=== PATIENT | male | born 1960 | race Caucasian/White ===

== ENCOUNTER 2022-05-30 10:27 | Outpatient (REF) | payer OTHER, SELFPAY ==
--- NOTE | ~2022-05-30 | XR_ITS ---
EXAMINATION: XR LUMBOSACRAL SPINE CLINICAL INFORMATION: Lumbar region radiculopathy. COMPARISON: None TECHNIQUE: Three views of the lumbosacral spine. FINDINGS: There is normal lumbar lordosis and spinal alignment. Mild degenerative disc disease is seen at L5-S1. There is no acute fracture. The soft tissues are unremarkable. XR/XR lumbar spine 2-3V IMPRESSION: L5-S1 mild degenerative disc disease.
[2022-05-30 13:41] LABS: MANUAL DIFF FLAG NO
[2022-05-30 13:52] LABS: Appearance Urine Clear; Color Urine Yellow; Glucose Urine UA Negative (Negative); Leukocyte Esterase Urine Negative (Negative); Nitrite Urine Negative (Negative); Specific Gravity - Urine 1.015 (1.005-1.025); Urine Blood Negative (Negative); Urine Ketones Negative (Negative); Urine Protein Negative (Neg-Trace)
[2022-05-30 13:56] LABS: Basophils Absolute Auto 0.1 X10*3/uL (0.0-0.2); Basophils Percent Auto 1.1 % (0-2); Eosinophils Absolute Auto 0.3 X10*3/uL (0.0-0.4); Hemoglobin 15.5 g/dl (14.0-18.0); Imm Gran Abs Auto 0.02 X10*3/uL (0.00-0.03); Imm Gran Pct Auto 0.3 % (0.0-0.4); Lymphocytes Absolute Auto 1.7 X10*3/uL (1.2-4.9); Lymphocytes Percent Auto 25.2 % (20-40); Mean Corpuscular HGB Conc 35.2 g/dl (31.0-36.0); Mean Corpuscular Hemoglobin 30.3 pg (27.0-33.0); Mean Corpuscular Volume 86.1 fL (80.0-98.0); Mean Platelet Volume 10.1 fL (9.4-12.4); Monocytes Absolute Auto 0.7 X10*3/uL (0.1-1.2); Neutrophils Absolute Auto 3.9 x10*3/uL (2.0-8.3); Neutrophils Percent Auto 59.4 % (45-73); Platelet Count 254 X10*3/uL (160-400); Red Blood Count 5.11 X10*6/uL (4.60-5.80); Red Cell Distribution Width 13.2 % (11.0-16.0); White Blood Count 6.6 X10*3/uL (4.8-10.8)
[2022-05-30 14:11] LABS: Alanine Aminotransferase 25 U/L (0-40); Albumin Level 4.6 g/dL (3.5-5.0); Alkaline Phosphatase 97 U/L (39-117); Anion Gap 18 (12-20); Aspartate Amino Transferase 30 U/L (5-37); Bilirubin Total 0.4 mg/dL (0.0-1.0); Blood Urea Nitrogen 16 mg/dL (9-16); Calcium 9.6 mg/dL (8.4-10.2); Carbon Dioxide 20 mmol/L (22-29); Chloride 104 mmol/L (96-108); Cholesterol 204 mg/dL; Estimated Glomerular Filt Rate > 60; Glucose Fasting 166 mg/dL (60-99); HDL Cholesterol 60 mg/dL; LDL Cholesterol Calculated 107 mg/dl; Potassium 4.3 mmol/L (3.3-5.1); Sodium 138 mmol/L (135-145); Total Protein 7.3 g/dL (6.5-8.0); Triglycerides 186 mg/dL; Uric Acid 7.3 mg/dL (3.4-7.0)
[2022-05-30 14:33] LABS: TSH reflex Free T4 1.01 uIU/mL (0.32-4.0)
== END 2022-05-30 10:28 | disposition home or self-care (01) ==
LOC: HO.HMGCLDS 10:27
PROVIDERS: PCP Nurse Practitioner Family; Visit Provider Nurse Practitioner Family
DX: M54.16 Radiculopathy, lumbar region (principal); G89.29 Other chronic pain; I10 Essential (primary) hypertension; M10.9 Gout, unspecified
CPT/HCPCS: 36415; 72100; 80053; 80061; 81003; 84443; 84550; 85025

== ENCOUNTER 2023-01-01 13:32 | Outpatient (REF) | payer OTHER, SELFPAY ==
[2023-01-01 17:10] LABS: Influenza A PCR NEGATIVE (Negative); Influenza B PCR NEGATIVE (Negative); Resp Syncy Virus RNA Qual PCR NEGATIVE (Negative); SARS COV2 PCR INHOUSE NEGATIVE (Negative)
== END 2023-01-01 13:33 | disposition home or self-care (01) ==
LOC: HO.LAB 13:32
PROVIDERS: Visit Provider Physician Assistant Medical
DX: Z20.822 Contact with and (suspected) exposure to COVID-19 (principal); R09.89 Other specified symptoms and signs involving the circulatory and respiratory systems
CPT/HCPCS: 0241U

== ENCOUNTER 2023-01-01 13:40 | Outpatient (REF) | payer OTHER, SELFPAY ==
--- NOTE | ~2023-01-01 | XR_ITS ---
EXAMINATION: XR chest 2V CLINICAL INFORMATION: Acute sinusitis, unspecified COMPARISON: No prior studies available for comparison. TECHNIQUE: XR chest 2V Lungs and Denita: There are mild bilateral parahilar interstitial opacification, probably mild interstitial infiltrates. There is no dense lobar consolidation. Pleura: Normal. Costophrenic angles are sharp. No pneumothorax. Heart: The heart is normal in size. Mediastinum: The mediastinum is within normal limits.. Bones: Spondylosis of dorsal spine. No evidence of acute fracture. XR/XR chest 2V IMPRESSION: * Mild bilateral parahilar interstitial opacification probably mild interstitial infiltrates. * No dense lobar consolidation or pleural effusion. * No evidence of acute fracture.
== END 2023-01-01 13:41 | disposition home or self-care (01) ==
LOC: HO.HMGCX 13:40
PROVIDERS: PCP Nurse Practitioner Family; Visit Provider Physician Assistant Medical
DX: R05.9 Cough, unspecified (principal); J01.90 Acute sinusitis, unspecified
CPT/HCPCS: 71046

== ENCOUNTER 2023-02-13 09:51 | Outpatient (REF) | payer OTHER, SELFPAY ==
--- NOTE | ~2023-02-13 | XR_ITS ---
EXAMINATION: XR CHEST CLINICAL INFORMATION: Abnormal lung field finding. COMPARISON: 12/24/2022 chest radiographs. TECHNIQUE: 2 views of the chest were obtained. FINDINGS: There is generalized hyperinflation. A paucity of lung markings is seen in the upper lung jimenez with mild bibasilar linear markings decrease in the previous study. There are no pleural effusions. The heart and mediastinal structures are unremarkable. XR/XR chest 2V IMPRESSION: 1. Pulmonary findings consistent with COPD. Mild bibasilar linear atelectasis/scarring has decreased. No acute cardiopulmonary process.
== END 2023-02-13 09:52 | disposition home or self-care (01) ==
LOC: HO.HMGCX 09:51
PROVIDERS: PCP Nurse Practitioner Family; Visit Provider Nurse Practitioner Family
DX: R91.8 Other nonspecific abnormal finding of lung field (principal)
CPT/HCPCS: 71046

== ENCOUNTER 2023-03-08 07:20 | Outpatient (REF) | payer OTHER, SELFPAY | END 2023-03-08 07:21 | disposition home or self-care (01) | LOC: HO.RESP 07:20 | PROVIDERS: PCP Nurse Practitioner Family; Visit Provider Nurse Practitioner Family | DX: J44.9 Chronic obstructive pulmonary disease, unspecified (principal) | CPT/HCPCS: 94060; 94727; 94729 ==

== ENCOUNTER 2023-03-13 07:11 | Outpatient (REF) | payer OTHER, SELFPAY ==
[2023-03-13 11:10] LABS: MANUAL DIFF FLAG NO
[2023-03-13 11:15] LABS: Appearance Urine Clear; Color Urine Yellow; Glucose Urine UA Negative (Negative); Leukocyte Esterase Urine Negative (Negative); Nitrite Urine Negative (Negative); Specific Gravity - Urine 1.015 (1.005-1.025); Urine Blood Negative (Negative); Urine Ketones Negative (Negative); Urine Protein Negative (Neg-Trace)
[2023-03-13 11:21] LABS: Basophils Absolute Auto 0.1 X10*3/uL (0.0-0.2); Eosinophils Absolute Auto 0.2 X10*3/uL (0.0-0.4); Eosinophils Percent Auto 3.2 % (0-4); Hematocrit 42.6 % (42.0-52.0); Hemoglobin 14.4 g/dl (14.0-18.0); Imm Gran Abs Auto 0.01 X10*3/uL (0.00-0.03); Imm Gran Pct Auto 0.2 % (0.0-0.4); Lymphocytes Absolute Auto 1.4 X10*3/uL (1.2-4.9); Lymphocytes Percent Auto 28.4 % (20-40); Mean Corpuscular HGB Conc 33.8 g/dl (31.0-36.0); Mean Corpuscular Hemoglobin 29.8 pg (27.0-33.0); Mean Corpuscular Volume 88.2 fL (80.0-98.0); Monocytes Absolute Auto 0.6 X10*3/uL (0.1-1.2); Monocytes Percent Auto 12.9 % (2-11); Neutrophils Absolute Auto 2.7 x10*3/uL (2.0-8.3); Neutrophils Percent Auto 54.3 % (45-73); Platelet Count 210 X10*3/uL (160-400); Red Blood Count 4.83 X10*6/uL (4.60-5.80)
[2023-03-13 11:48] LABS: Alanine Aminotransferase 36 U/L (0-40); Albumin Level 4.2 g/dL (3.5-5.0); Alkaline Phosphatase 76 U/L (39-117); Anion Gap 15 (12-20); Aspartate Amino Transferase 44 U/L (5-37); Bilirubin Total 0.6 mg/dL (0.0-1.0); Blood Urea Nitrogen 18 mg/dL (9-16); Calcium 9.6 mg/dL (8.4-10.2); Carbon Dioxide 19 mmol/L (22-29); Chloride 109 mmol/L (96-108); Cholesterol 183 mg/dL; Estimated Glomerular Filt Rate > 60; Glucose Fasting 164 mg/dL (60-99); HDL Cholesterol 55 mg/dL; LDL Cholesterol Calculated 104 mg/dl; Sodium 139 mmol/L (135-145); Total Protein 6.9 g/dL (6.5-8.0); Triglycerides 120 mg/dL
[2023-03-13 11:55] LABS: TSH reflex Free T4 1.52 uIU/mL (0.32-4.0)
== END 2023-03-13 07:12 | disposition home or self-care (01) ==
LOC: HO.HMGCLDS 07:11
PROVIDERS: PCP Nurse Practitioner Family; Visit Provider Nurse Practitioner Family
DX: I10 Essential (primary) hypertension (principal)
CPT/HCPCS: 36415; 80053; 80061; 81003; 84443; 85025

== ENCOUNTER 2023-03-19 09:13 | Outpatient (REF) | payer OTHER, SELFPAY ==
--- NOTE | ~2023-03-19 | US_ITS ---
EXAMINATION: US ABDOMEN COMPLETE CLINICAL INFORMATION: Abnormal levels of other serum enzymes. COMPARISON: None available. TECHNIQUE: Real-time imaging of the abdominal viscera. FINDINGS: PANCREAS: Normal head and body, the tail is obscured by bowel gas. ABDOMINAL AORTA: The mid and distal segments are normal in caliber. The proximal abdominal aorta is obscured by bowel gas. INFERIOR VENA CAVA: Visualized portions are normal. LIVER: The liver is enlarged, measuring 19.6 cm in sagittal oblique dimension. The liver contour is normal. There is diffuse increased liver parenchymal echogenicity, consistent with hepatic steatosis. No focal hepatic lesion. There is no intrahepatic biliary duct dilatation seen. GALLBLADDER: Normal. The gallbladder is physiologically distended without evidence of stones, sludge, polyps, wall thickening or pericholecystic fluid. COMMON BILE DUCT: Normal in caliber measuring 0.16 cm in diameter. RIGHT KIDNEY: Normal. No hydronephrosis. No renal calculi or focal parenchymal lesions. The kidney measures 12.0 cm in maximum dimension. LEFT KIDNEY: Normal. No hydronephrosis. No renal calculi or focal parenchymal lesions. The kidney measures 12.1 cm in maximum dimension. SPLEEN: Normal. The spleen measures 13.2 cm in maximum dimension. FREE FLUID: None. US/US abdomen complete IMPRESSION: 1. Hepatomegaly and hepatic steatosis. 2. The tail of the pancreas and proximal abdominal aorta are obscured by bowel gas.
== END 2023-03-19 09:14 | disposition home or self-care (01) ==
LOC: HO.HMGCX 09:13
PROVIDERS: PCP Nurse Practitioner Family; Visit Provider Nurse Practitioner Family
DX: R74.8 Abnormal levels of other serum enzymes (principal)
CPT/HCPCS: 76700

== ENCOUNTER 2023-03-27 08:33 | Outpatient (REF) | payer OTHER, SELFPAY ==
[2023-03-27 11:49] LABS: Estimated Average Glucose 154 mg/dL
[2023-03-29 08:54] LABS: HBS Num1 0.32 mIU/mL (0-7.99); HBsAGNum1 0.46 S/CO (0.00-0.99); Hepatitis A Antibody IgM 0.15 Index (0-0.79); Hepatitis B Core Antibody Nonreactive (Nonreactive); Hepatitis B Surface Antigen Negative (Negative); ~HepC Num1 0.06 S/CO (0.00-0.79); ~Hepatitis A Antibody IgM Nonreactive (Nonreactive); ~Hepatitis B Surface Antibody NONREACTIVE (Nonreactive); ~Hepatitis C Antibody Nonreactive (Nonreactive)
== END 2023-03-27 08:34 | disposition home or self-care (01) ==
LOC: HO.HMGCLDS 08:33
PROVIDERS: Internal Medicine; PCP Nurse Practitioner Family; Visit Provider Nurse Practitioner Family
DX: R73.01 Impaired fasting glucose (principal); R74.8 Abnormal levels of other serum enzymes
CPT/HCPCS: 36415; 83036; 86704; 86706; 86709; 86803; 87340

== ENCOUNTER 2023-08-13 09:39 | Outpatient (AMB) | payer OTHER, SELFPAY ==
[2023-08-13 11:01] VITALS: BP 140/78; PULSE 89; TEMP 36.2; O2SAT 98; BMI 34.9
--- NOTE | 2023-08-13 11:01 | AM.OFFWIN_ITS ---
Intake Vital Signs 08/13/23 11:01 Height 6 ft Weight 116.573 kg BMI 34.9 BP 140/78 H Blood Pressure Location Rt brachial Position Sitting Pulse 89 Pulse Source Pulse Oximeter Temp 97.1 F Pulse Oximetry (%) 98 Oxygen Delivery Method Room Air Intake Visit Reasons: EST/sinus infection/[phone] Intake Note: pt is here today for sinus infection started last wednesday Patient Tobacco Use Status: Former Tobacco user Quit Date: quit 37 years ago Allergies Sulfa (Sulfonamide Antibiotics) Allergy (Unknown, Verified 02/22/23 12:11) Nausea and Vomiting Do you need a note to return to daycare/school/sports/work: No HPI HPI Comments History of Present Illness Details 62-year-old male history of COPD, gout, hypertension presents with fatigue, malaise, myalgias, sinus pressure and congestion going on for about 8 days, not improving. Patient denies sick contacts. Denies fevers, chills, headache, neck pain, have vision changes, dizziness, weakness, nausea, vomiting, abdominal pain, chest pain and shortness of breath Physical exam sinus pressure to face with forward bending. With palpation of f acial sinuses History and physical exam concerning for viral illness versus sinusitis. Unlikely pulmonary embolism, pneumonia, acute respiratory distress. Plan at this time will give Augmentin, prednisone. Educated patient on diagnosis and treatment plan, answered all question, patient verbalizes understanding. At this time patient will be discharged home, advised to return with new or worsening symptoms. Educated on worrisome signs and symptoms and when to return. At this time I feel comfortable discharge home. [facility] Surgical History H/O prostate biopsy Family History Father Substance use disorder Mother Substance use disorder Maternal Grandfather Substance use disorder Maternal Grandmother Substance use disorder Paternal Grandfather Substance use disorder Paternal Grandmother Substance use disorder Social History Housing: House Patient Tobacco Use Status: Former Tobacco user Quit Date: quit 37 years ago e-Cigarette/Vaping Use: Never Used Second Hand Smoke Exposure: No service: No Current occupational status: employed Current occupation: [employer] Current occupational exposures/hazards: Yes Cognitive needs: No Hearing needs: No Vision needs: No Review of Systems Const Details: Constitutional : No Weight loss, No Fever, No Chills, + Fatigue, + Malaise ENT/Mouth : No sore throat, No Rhinorrhea, + sinus pressure Eyes: No Eye Pain, No Swelling, No Redness Cardiovascular : No Chest Pain, No SOB, No Dyspnea on Exertion, No Orthopnea, No Edema, No Palpitations Respiratory : No Cough, No Sputum, No Wheezing Gastrointestinal : No Nausea, No Vomiting, No Diarrhea, No Constipation, No abdominal Pain, No Hematochezia, No Melena Genitourinary : No Dysuria, No Urinary Frequency, No Hematuria, Musculoskeletal : No joint pain, No Myalgias, No Joint Swelling Skin : No Skin Lesions, No rash Neuro : No Weakness, No Numbness, No Dizziness, No Headache Psych : No Anxiety/Panic, No Depression All other systems reviewed and are negative All systems reviewed & are unremarkable except as noted in HPI and below Physical Exam Vital Signs: Last Vital Signs Temp 97.1 F 08/13/23 11:01 Pulse 89 08/13/23 11:01 BP 140/78 H 08/13/23 11:01 Pulse Ox 98 08/13/23 11:01 Oxygen Delivery Method Room Air 08/13/23 11:01 BMI result Body Mass Index 34.9 Vital signs stable Appearance: Alert.? Oriented X3.? No acute distress.? Head: Normocephalic, atraumatic, no step-offs or deformities sinus pressure to face with forward bending. With palpation of facial sinuses Eyes: Pupils equal, round and reactive to light.? ENT: Pharynx normal.? Neck: Normal inspection.? Neck supple.? CVS: Normal heart rate and rhythm.? Pulses normal.? Respiratory: No respiratory distress.? Breath sounds normal.? Abdomen: Soft and nontender.? Skin: Skin warm and dry.? Normal skin color.? Normal skin turgor.? Extremities: No lower extremity edema.? No calf ttp. 5/5 strength to bilateral upper and lower extremities Neuro: Oriented X 3.? No motor deficit.? No sensory deficit. CN 2-12 intact Assessment & Plan Assessment & Plan (1) Sinusitis, acute: Code(s): J01.90 - Acute sinusitis, unspecified Plan Take your medications as prescribed. If you were prescribed antibiotics today, it is important that you take your medication to their entirety, do not skip any doses, do not finish them early. Follow-up with your primary care provider this week. Return to the emergency department with new or worsening symptoms. Such as fevers, chills, chest pain, shortness of breath, nausea, vomiting, dizziness, headache, vision changes, lethargy In case of emergency call 911 Medications: New amoxicillin-pot clavulanate 875-125 mg 1 tab PO BID 20 tabs 0RF 10 days prednisone 40 mg (2 x 20 mg) PO DAILY 10 tabs 0RF 5 days Coding Level of Care Code Est Pt Level 3 (76593) Diagnoses Sinusitis, acute J01.90
== END 2023-08-13 11:55 | disposition home or self-care (01) ==
PROVIDERS: PCP Nurse Practitioner Family; Visit Provider Physician Assistant
DX: J01.90 Acute sinusitis, unspecified (principal)
CPT/HCPCS: 99213

== ENCOUNTER 2023-11-03 08:19 | Outpatient (AMB) | payer BC, SELFPAY ==
--- NOTE | 2023-11-03 08:25 | A.OFFPC_ITS ---
Vital Signs 11/03/23 08:27 Height 6 ft Weight 254 lb 4 oz BMI 34.5 BP 130/88 Blood Pressure Location Rt brachial Position Sitting Pulse 81 Pulse Source Pulse Oximeter Pulse Oximetry (%) 94 Oxygen Delivery Method Room Air Intake Visit Reasons: Physical exam Intake Note: Pt is here for his Annual PE and is Fasting today Allergies Sulfa (Sulfonamide Antibiotics) Allergy (Unknown, Verified 11/03/23 08:31) Nausea and Vomiting Medication List - Last Reviewed 11/03/23 by Bertha Duke CMA albuterol sulfate 90 mcg/actuation 1 inh inhalation QID PRN allopurinol 100 mg PO DAILY amlodipine 5 mg PO DAILY 90 days lisinopril 10 mg PO DAILY 90 days Tobacco use date assessed: 11/03/23 Fall risk assessment: No Falls in past year Last assessed Fall Risk: 11/03/23 Dental Screening Dental Screen Date: 11/03/23 Did you have a dental visit in the last 12 months?: Yes Did you have a dental problem in the last 6 months where you did not have access to dental care?: No Was dental information given to patient?: Patient has dentist HPI Physical exam HPI Details Pt is here for a PE. Will order labs. Colon screen is up to date. Due for PSA, will order. Denies dribbling with urination, weak stream, and frequent nocturia. Pt follows up with urology. Pt is a diabetic, on an MATTY. A1C in office today is 9.7. Due for microalbumin, will order. 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 Pt denies any signs and symptoms of hypoglycemia and does know how to correct it. Pt reports not checking his blood sugar at home. He does not have a meter, will send. Educated pt on bid testing (fasting in the morning and one other time throughout the day/random). Will start metformin 500mg bid and jardiance 10mg. Will refer to nurse navigator. Will start low-dose atorvastatin. Eye exam is up to date. reinforced importance of tight glucose control. [facility] Surgical History H/O prostate biopsy Family History Father Substance use disorder Mother Substance use disorder Maternal Grandfather Substance use disorder Maternal Grandmother Substance use disorder Paternal Grandfather Substance use disorder Paternal Grandmother Substance use disorder Social History Housing: House Patient Tobacco Use Status: Former Tobacco user Quit Date: quit 37 years ago e-Cigarette/Vaping Use: Never Used Second Hand Smoke Exposure: No service: No Current occupational status: employed Current occupation: [employer] Current occupational exposures/hazards: Yes Cognitive needs: No Hearing needs: No Vision needs: No Questionnaire PHQ-9 Over the last 2 weeks, how often have you been bothered by any of the following problems? 1. Little interest or pleasure in doing things: several days 2. Feeling down, depressed, or hopeless: not at all 3. Trouble falling or staying asleep, or sleeping too much: several days 4. Feeling tired or having little energy: several days 5. Poor appetite or overeating: several days 6. Feeling bad about yourself - or that you are a failure or have let yourself or your family down: several days 7. Trouble concentrating on things, such as reading the newspaper or watching television: several days 8. Moving or speaking so slowly that other people could have noticed. Or the opposite - being so fidgety or restless that you have been moving around a lot more than usual: several days 9. Thoughts that you would be better off or of hurting yourself in some way: not at all Total score: 7 Depression Screening Interpretation: Negative Depression Screening Done: Yes 15614 - PHQ-9 Billing: Yes Source: Developed by Drs. Unruly Whaley, Breann Patino, Jessee Rod and colleagues, with an educational litzy from [employer]. Thrive Questionnaire Date Thrive assessed: 11/03/23 I am a: Patient What is your living situation today?: I have a steady place to live Within the past 12 months, did the food you bought not last and you didn't have the money to get more?: Never true Within the past 12 months, did you worry whether your food would run out before you got money to buy more?: Never true Do you have trouble paying for medicines?: No Do you have trouble getting transportation to medical appointments?: No Do you have trouble paying your heating and electricity bill?: No Do you have trouble taking care of your child, family member or friend?: No Do you have trouble with day-to-day activities such as bathing, preparing meals, shopping, managing finances, etc.?: No Are you currently unemployed and looking for a job?: No Are you interested in more education?: Yes Currently or been in a relationship where the following occur: no concerns reported THRIVE Score: 0 AUDIT C Alcohol Use Questionnaire (AUDIT-C) 1. How often do you have a drink containing alcohol?: 4 or more times a week 2. How many drinks containing alcohol do you have on a typical day when you are drinking?: 3 or 4 3. How often do you have six or more drinks on one occasion?: Weekly Total Score: 8 Score Reviewed/Action Taken: Yes STEFANY-7 AMB Questionnaire STEFANY-7 Date STEFANY - 7 assessed: 11/03/23 Feeling nervous, anxious, or on edge: 1 = Several days Not being able to stop or control worryin = Several days Worrying too much about different things: 1 = Several days Trouble relaxin = Several days Being so restless that it is hard to sit still: 1 = Several days Becoming easily annoyed or irritable: 1 = Several days Feeling afraid as if something awful might happen: 0 = Not at all Total STEFANY-7 score (0-4 normal; 5-9 mild; 10-14 moderate; 15-21 severe): 6 Source: Developed by Drs. Unruly Whaley, Breann Patino, Jessee Rod and colleagues, with an educational litzy from [employer]. STEFANY-7 Assessment Billing STEFANY-7 Assessment Tool: STEFANY-7 Assessment 29197 Review of Systems Const Denies chills and Denies fever(s) Eyes Denies blurry vision ENT Denies vertigo, Denies dizziness and Denies sore throat Card Denies chest pain at rest, Denies chest pain with activity, Denies diaphoresis, Denies dyspnea and Denies dyspnea on exertion Resp Denies cough, Denies dyspnea, Denies dyspnea on exertion and Denies wheezing GI Denies abdominal pain, Denies melena, Denies hematochezia, Denies constipation, Denies diarrhea and Denies loose stools Denies hematuria Musc Denies numbness and Denies tingling Skin/Breast Denies lesions Neuro Denies vertigo, Denies dizziness, Denies numbness and Denies tingling Psych Denies anxiety, Denies depression, Denies homicidal ideation, Denies suicidal ideation and Denies other (substance abuse) Aller/Immun Denies wheezing Physical exam (Primary Care) Vital Signs: Last Vital Signs Pulse 81 11/03/23 08:27 BP 130/88 11/03/23 08:27 Pulse Ox 94 11/03/23 08:27 Oxygen Delivery Method Room Air 11/03/23 08:27 BMI result Body Mass Index 34.5 Tobacco/Smoking Status: Tobacco use Status Tobacco use date assessed 11/03/23 11/03/23 08:35 Patient Tobacco Use Status Former Tobacco user 11/03/23 08:26 e-Cigarette/Vaping Use Never Used 11/03/23 08:26 Depression Screening Interpretation: Negative Thrive Assessment: Date of Thrive Assessment Date Thrive assessed 05/27/22 11/03/23 08:26 Currently or been in a relationship where the following occur: no concerns reported Const General: cooperative Nutritional Appearance: obese Orientation/consciousness: patient oriented x3 HENMT Head: Yes normal to inspection, Yes normocephalic and Yes atraumatic Ears: TM's normal bilaterally Eyes General: appearance normal, both eyes and all related structures Alignment and Position: alignment normal and position normal Neck Neck: Yes normal visual inspection and Yes no lymphadenopathy Thyroid: Thyroid normal Resp Effort & Inspection: normal respiratory effort Auscultation: clear to auscultation bilaterally Cardio Rate: regular rate Rhythm: regular rhythm Heart sounds: S1 normal heart sound present, S2 normal heart sound present and no murmurs GI Palpation (GI): Soft to palpation and nontender Auscultation: normal bowel sounds Male General Exam: Yes normal external exam Penis: normal penis Scrotum: scrotum normal, testes descended bilaterally and no inguinal hernias Testes: no testicular mass Skin Other: upper cervical region with large lipoma Rashes: no rashes Neuro General: patient oriented x3, moves all extremities, no focal motor deficits and deep tendon reflexes 2+ bilaterally Romberg Test: Negative Extrem Other: bilat feet: + sensation with use of monofilament, left 1st toe medial aspect with large nodular callous formation, otherwise feet intact Psych Appearance: grossly normal Mental Status: mental status grossly normal Speech and movement: Normal speech and movement present Affect: normal affect Attitude: cooperative Thought process: Normal thought process present Thought content: Normal thought content present Insight: Good insight present (Psych) Judgement: Good judgement present (Psych) Results AMB Hemoglobin A1c AMB Hemoglobin A1c 9.7 % Last Edit by Bertha Duke CMA on 11/03/23 09: 21 Immunizations pneumoc 20-carlos manuel conj-dip cr(PF) 0.5 mL IM syringe Performing Provider: BENJAMIN Mendiola Performing Location: [facility] Administered by: Bertha Duke CMA on 11/03/23 09:18 Dose Route Admin Location Dispensed Lot Number Expiration Date [address] In [employer] Attendant 0.5 mL IM Right Deltoid 0.5 mL [id number] 05/06/24 0318-3679-59 [employer] VIS Given Date VIS Provided VIS Publication Date 11/03/23 Single Vaccine 21 Eligibility Eligibility Date Funding Source Not [facility] Eligible 11/03/23 Private Assessment and Plan Assessment & Plan (1) Physical exam: Code(s): Z00.00 - Encounter for general adult medical examination without abnormal findings Plan: Labs ordered (2) Screening PSA (prostate specific antigen): Code(s): Z12.5 - Encounter for screening for malignant neoplasm of prostate Plan: PSA ordered (3) Diabetes: Code(s): E11.9 - Type 2 diabetes mellitus without complications Plan: Labs ordered, starting metformin and jardiance, referred to nurse navigator Plan The patient agreed to the use of a general medical practitioner for this encounter. Scribed for BENJAMIN Garnica by hellen Reyna scribe, on 11/03/2023 at 08:40 EST. Orders: Orders TSH reflex Free T4 Today Z00.00 - Encounter for general adult medical examination without abnormal findings Lipid Panel Today Z00.00 - Encounter for general adult medical examination without abnormal findings Complete Blood Count Auto Diff 11 Months Z00.00 - Encounter for general adult medical examination without abnormal findings TSH reflex Free T4 11 Months Z00.00 - Encounter for general adult medical examination without abnormal findings Lipid Panel 11 Months Z00.00 - Encounter for general adult medical examination without abnormal findings Microalbumin, Random (w Creat) Today E11.9 - Type 2 diabetes mellitus without complications Pneumococcal 20 Immunization Today Z23 - Encounter for immunization AMB Hemoglobin A1c Today E11.9 - Type 2 diabetes mellitus without complications Complete Blood Count Auto Diff Today Z00.00 - Encounter for general adult medical examination without abnormal findings Comprehensive [place]. Panel Fast Today Z00.00 - Encounter for general adult medical examination without abnormal findings UA CC w/rflx Micro + Cult Today Z00.00 - Encounter for general adult medical examination without abnormal findings Prostate Specific Antigen Scr Today Z12.5 - Encounter for screening for malign ant neoplasm of prostate UA CC w/rflx Micro + Cult 11 Months Z00.00 - Encounter for general adult medical examination without abnormal findings Prostate Specific Antigen Scr 11 Months Z12.5 - Encounter for screening for malignant neoplasm of prostate Referrals Nurse Navigator Referral E11.9 - Type 2 diabetes mellitus without complications Medications: New empagliflozin (Jardiance) 10 mg PO DAILY 90 tabs 0RF atorvastatin 20 mg PO BEDTIME 90 days 90 tabs 1RF metformin ER 500 mg PO BID 90 days 180 tabs 0RF Coding Level of Care Code Est Pt Prev Care 40-64y(56701) Diagnoses Physical exam Z00.00 Screening PSA (prostate specific antigen) Z12.5 Diabetes E11.9 Additional Codes STEFANY-7 Assessment Billing - STEFANY-7 Assessment Tool: STEFANY-7 Assessment 07055 ([id number])
[2023-11-03 08:27] VITALS: BP 130/88; PULSE 81; O2SAT 94; BMI 34.5
== END 2023-11-03 09:23 | disposition home or self-care (01) ==
PROVIDERS: PCP Nurse Practitioner Family; Visit Provider Nurse Practitioner Family
DX: Z00.00 Encounter for general adult medical examination without abnormal findings (principal); Z12.5 Encounter for screening for malignant neoplasm of prostate; E11.9 Type 2 diabetes mellitus without complications; Z23 Encounter for immunization
CPT/HCPCS: 83036; 90471; 90677; 99396

== ENCOUNTER 2023-11-03 09:26 | Outpatient (REF) | payer BC, SELFPAY ==
[2023-11-03 11:18] LABS: MANUAL DIFF FLAG NO
[2023-11-03 11:22] LABS: Basophils Absolute Auto 0.1 X10*3/uL (0.0-0.2); Basophils Percent Auto 0.9 % (0-2); Eosinophils Absolute Auto 0.2 X10*3/uL (0.0-0.4); Eosinophils Percent Auto 3.4 % (0-4); Hematocrit 46.5 % (42.0-52.0); Hemoglobin 16.1 g/dl (14.0-18.0); Imm Gran Abs Auto 0.02 X10*3/uL (0.00-0.03); Imm Gran Pct Auto 0.4 % (0.0-0.4); Lymphocytes Absolute Auto 1.5 X10*3/uL (1.2-4.9); Lymphocytes Percent Auto 28.2 % (20-40); Mean Corpuscular HGB Conc 34.6 g/dl (31.0-36.0); Mean Corpuscular Hemoglobin 29.9 pg (27.0-33.0); Mean Corpuscular Volume 86.4 fL (80.0-98.0); Monocytes Absolute Auto 0.6 X10*3/uL (0.1-1.2); Monocytes Percent Auto 11.2 % (2-11); Neutrophils Percent Auto 55.9 % (45-73); Platelet Count 222 X10*3/uL (160-400); Red Blood Count 5.38 X10*6/uL (4.60-5.80); Red Cell Distribution Width 13.3 % (11.0-16.0); White Blood Count 5.3 X10*3/uL (4.8-10.8)
[2023-11-03 11:25] LABS: Appearance Urine Clear; Color Urine Yellow; Glucose Urine UA 250 mg/dL (Negative); Leukocyte Esterase Urine Negative (Negative); Nitrite Urine Negative (Negative); PH 5.5 (5.0-9.0); Specific Gravity - Urine 1.025 (1.005-1.025); Urine Blood Negative (Negative); Urine Ketones Trace mg/dL (Negative); Urine Protein Negative (Neg-Trace)
[2023-11-03 12:11] LABS: Creatinine Urine 190.29 mg/dL; Microalbum/Creatinine Ratio Ur 15.7 ug/mg cr (<30)
[2023-11-03 12:15] LABS: Prostate Specific Antigen Scr 2.81 ng/mL (<0.05-4.0)
[2023-11-03 12:27] LABS: Alanine Aminotransferase 43 U/L (0-40); Albumin Level 4.4 g/dL (3.5-5.0); Alkaline Phosphatase 90 U/L (39-117); Anion Gap 13 (12-20); Aspartate Amino Transferase 76 U/L (5-37); Bilirubin Total 0.6 mg/dL (0.0-1.0); Blood Urea Nitrogen 17 mg/dL (9-16); Calcium 9.8 mg/dL (8.4-10.2); Carbon Dioxide 22 mmol/L (22-29); Chloride 105 mmol/L (96-108); Cholesterol 226 mg/dL (<200); Estimated Glomerular Filt Rate > 60; Glucose Fasting 264 mg/dL (60-99); HDL Cholesterol 56 mg/dL (>40); LDL Cholesterol Calculated 131 mg/dL (<100); Potassium 4.2 mmol/L (3.3-5.1); Sodium 136 mmol/L (135-145); TSH reflex Free T4 1.02 uIU/mL (0.32-4.0); Total Protein 7.5 g/dL (6.5-8.0); Triglycerides 198 mg/dL (<150)
== END 2023-11-03 09:27 | disposition home or self-care (01) ==
LOC: HO.HMGCLDS 09:26
PROVIDERS: PCP Nurse Practitioner Family; Visit Provider Nurse Practitioner Family
DX: Z00.00 Encounter for general adult medical examination without abnormal findings (principal); Z12.5 Encounter for screening for malignant neoplasm of prostate; E11.9 Type 2 diabetes mellitus without complications
CPT/HCPCS: 36415; 80053; 80061; 81003; 82043; 82570; 84153; 84443; 85025

== ENCOUNTER 2024-01-25 15:04 | Outpatient (AMB) | payer BC, SELFPAY ==
[2024-01-25 15:25] VITALS: BP 110/70; PULSE 72; O2SAT 96; BMI 35.5
--- NOTE | 2024-01-25 15:25 | A.OFFPC_ITS ---
Vital Signs 01/25/24 15:25 Height 6 ft Weight 262 lb BMI 35.5 BP 110/70 Blood Pressure Location Rt brachial Position Sitting Pulse 72 Pulse Source Pulse Oximeter Pulse Oximetry (%) 96 Oxygen Delivery Method Room Air Intake Visit Reasons: 3M F/U Intake Note: Patient here for diabetic f/u. Allergies Sulfa (Sulfonamide Antibiotics) Allergy (Unknown, Verified 01/25/24 15:26) Nausea and Vomiting Tobacco use date assessed: 11/03/23 Dental Screening Dental Screen Date: 11/03/23 HPI 3M F/U HPI Details Pt is a diabetic, on an MATTY and a statin. A1C in office today is 7.7. Microalbumin is up to date. Denies polyuria, polydipsia, and neuropathy. Pt denies any signs and symptoms of hypoglycemia and does know how to correct it. Pt reports that his blood sugar has been mostly ranging from 140s-170s. Will start farxiga 5mg. Pt has a hx of gout, will check uric acid. Irregularly irregular rhythm, EKG done in office shows a-flutter and ST elevations. Pt reports putting a new watch on recently and it showed a heart symbol. He is completely asymptomatic. EMS called. Pt was given 324mg of aspirin. He is sitting calmly in the exam room with me, awaiting EMS. PFSH Surgical History H/O prostate biopsy Family History Father Substance use disorder Mother Substance use disorder Maternal Grandfather Substance use disorder Maternal Grandmother Substance use disorder Paternal Grandfather Substance use disorder Paternal Grandmother Substance use disorder Social History Housing: House Patient Tobacco Use Status: Former Tobacco user Quit Date: quit 37 years ago e-Cigarette/Vaping Use: Never Used Second Hand Smoke Exposure: No service: No Current occupational status: employed Current occupation: [employer] Current occupational exposures/hazards: Yes Cognitive needs: No Hearing needs: No Vision needs: No Questionnaire Thrive Questionnaire Date Thrive assessed: 11/03/23 STEFANY-7 AMB Questionnaire STEFANY-7 Date STEFANY - 7 assessed: 11/03/23 Source: Developed by Drs. Unruly Whaley, Breann Patino, Jessee Rod and colleagues, with an educational litzy from [employer]). Review of Systems Const Reports as per HPI Physical exam (Primary Care) Vital Signs: Last Vital Signs Pulse 72 01/25/24 15:25 BP 110/70 01/25/24 15:25 Pulse Ox 96 01/25/24 15:25 Oxygen Delivery Method Room Air 01/25/24 15:25 BMI result Body Mass Index 35.5 Tobacco/Smoking Status: Tobacco use Status Tobacco use date assessed 11/03/23 01/25/24 15:25 Patient Tobacco Use Status Former Tobacco user 01/25/24 15:25 e-Cigarette/Vaping Use Never Used 01/25/24 15:25 Thrive Assessment: Date of Thrive Assessment Date Thrive assessed 11/03/23 01/25/24 15:25 Const General: cooperative Nutritional Appearance: obese Orientation/consciousness: patient oriented x3 Resp Effort & Inspection: normal respiratory effort Auscultation: clear to auscultation bilaterally Cardio Rate: tachycardic Rhythm: abnormal rhythm irregularly irregular Heart sounds: S1 normal heart sound present and S2 normal heart sound present Neuro General: patient oriented x3 Psych Appearance: grossly normal Mental Status: mental status grossly normal Speech and movement: Normal speech and movement present Affect: normal affect Attitude: cooperative Thought process: Normal thought process present Thought content: Normal thought content present Insight: Good insight present (Psych) Judgement: Good judgement present (Psych) Results AMB Hemoglobin A1c AMB Hemoglobin A1c 7.7 % Last Edit by RAMIRO Yuen on 01/25/24 15 :57 Assessment and Plan Assessment & Plan (1) Diabetes: Code(s): E11.9 - Type 2 diabetes mellitus without complications Plan: Starting farxiga, labs ordered (2) Gout: Code(s): M10.9 - Gout, unspecified Plan: Uric acid ordered (3) ST elevation: Code(s): R94.31 - Abnormal electrocardiogram [ECG] [EKG] Plan: ambulance called, 324mg of ASA given today. Pt is resting calmly in room now, texting his family, awaiting arrival of ambulance. (4) Atrial flutter: Code(s): I48.92 - Unspecified atrial flutter Plan: ambulance, transferring to [facility] Plan The patient agreed to the use of a medical management specialist for this encounter. Scribed for BENJAMIN Garnica by Cynthia Alvarez medical management specialist, on 01/25/2024 at 15:35 EST. Orders: Orders Complete Blood Count Auto Diff Today E11.9 - Type 2 diabetes mellitus without complications Comprehensive [place]. Panel Fast Today E11.9 - Type 2 diabetes mellitus without complications UA CC w/rflx Micro + Cult Today E11.9 - Type 2 diabetes mellitus without complications Lipid Panel Today E11.9 - Type 2 diabetes mellitus without complications Uric Acid Today M10.9 - Gout, unspecified AMB Hemoglobin A1c Today E11.9 - Type 2 diabetes mellitus without complications TSH reflex Free T4 Today E11.9 - Type 2 diabetes mellitus without complications Medications: New dapagliflozin propanediol (Farxiga) 5 mg PO DAILY 90 tabs 0RF Discontinued empagliflozin (Jardiance) Discontinued Reason: Patient Refused 10 mg PO DAILY 90 tabs 0RF Coding Level of Care Code Est Pt Level 3 (29741) Diagnoses Diabetes E11.[address] elevation R94.31 Atrial flutter I48.92
== END 2024-01-25 16:33 | disposition home or self-care (01) ==
PROVIDERS: PCP Nurse Practitioner Family; Visit Provider Nurse Practitioner Family
DX: E11.9 Type 2 diabetes mellitus without complications (principal); M10.9 Gout, unspecified; R94.31 Abnormal electrocardiogram [ECG] [EKG]; I48.92 Unspecified atrial flutter
CPT/HCPCS: 83036; 99213

== ENCOUNTER 2024-11-23 10:36 | Outpatient (AMB) | payer BC, SELFPAY ==
--- NOTE | 2024-11-23 10:39 | MHC.PC.OV ---
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- albuterol sulfate 90 mcg/actuation 1 inh inhalation QID PRN allopurinol 100 mg PO DAILY apixaban (Eliquis) 5 mg PO BID atorvastatin 20 mg PO BEDTIME 90 days blood sugar diagnostic ([employer] Verio test strips) Test blood sugar twice a day blood-glucose meter ([employer] Verio Flex Meter) As directed lancets ([employer]Touch Delica Plus Lancet) Test blood sugar twice a day lisinopril 10 mg PO DAILY 90 days metoprolol succinate ER 25 mg PO DAILY Tobacco use date assessed: 11/23/24 Fall risk assessment: No Falls in past year Last assessed Fall Risk: 11/23/24 Dental Screening Dental Screen Date: 11/23/24 Did you have a dental visit in the last 12 months?: Yes Did you have a dental problem in the last 6 months where you did not have access to dental care?: No Was dental information given to patient?: Patient has dentist HPI ANNUAL PE HPI Details History of Present Illness The patient is a 63-year-old male presenting for a physical examination and management of his chronic health conditions, which include Atrial Fibrillation with ongoing cardiology consultation. He continues under urological care for Benign Prostatic Hyperplasia. His Type 2 Diabetes Mellitus is poorly controlled with a recent A1c of 10.6. He stopped Metformin in the past but is willing to restart, and Jardiance is also to be initiated (started farxiga previously, it was too expensive . The patient reports dietary indiscretions impacting his glucose control. He also complains of exertional shortness of breath and a residual cough following a viral illness from one month ago. He has a history of Chronic Obstructive Pulmonary Disease and is exposed to chemicals at work, quite smoking around age 26, though reports secondary exposure. Health Maintenance - Encouraged to monitor dietary intake, focusing on reducing carbohydrates and sugars. - Discussed restarting Metformin therapy. - Planned initiation of Jardiance due to insurance coverage. - Underwent Hemoglobin A1c testing, result: 10.6. 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 - Discontinued smoking at age 26. Review of Systems - Respiratory: Reports shortness of breath on exertion and a persistent cough. -denies any cp, fevers, chills, N/V, blood in stool, constipation, diarrhea, SI or HI. Physical Exam General: Cooperative, healthy appearing, comfortable, no acute distress and well developed, obese Orientation: Patient oriented x3 Limitations: No limitations Head: Normal to inspection Ears: Hearing grossly normal bilaterally Nose: Normal external nose present Face and sinus: Normal facial exam Eyes: Appearance normal, both eyes and all related structures Neck: Normal visual inspection and Yes full ROM Respiratory: Normal respiratory effort and able to speak in complete sentences. Clear to auscultation bilaterally Cardiovascular: Regular rate and rhythm. Slightly diminished S1 and S2 GI: Normal to inspection. Soft to palpation and nontender Skin: No rashes or lesions noted Neuro: Patient oriented x3 Extremities: Normal to inspection. Feet intact bilaterally with positive sensation using monofilament. Results - Labs: Hemoglobin A1c, 10.6. Plan 1. 6. The patient was counseled on maintaining a strict dietary regimen to manage glucose levels. Given the respiratory symptoms, a CT scan of the lungs and a D-dimer test will be obtained to evaluate the etiology of the persistent cough and possible shortness of breath. Routine specialist care for Atrial Fibrillation and Benign Prostatic Hyperplasia will continue without changes.: Discussion Notes The patient was informed of the diabetes management plan with Metformin and Jardiance, emphasizing the need for dietary modifications for better control. The potential reasons for his respiratory symptoms were discussed, and consent for a CT scan and D-dimer test was obtained. The patient agreed to restart Metformin and commence Jardiance therapy, having recognized their benefits. Regular follow-up was advised to track the progression of symptoms, with input from respective specialists when needed. Patient Instructions - Start taking Jardiance as prescribed. - Restart Metformin daily as per prescribed dosage. - Follow the recommended dietary adjustments, focusing on reducing carbohydrates and sugars. - Continue regular appointments with cna gna and urologist. - Obtain a CT scan of the lungs and D-dimer test as scheduled. - Return to the clinic/ER if symptoms worsen or if new symptoms arise. [facility] Surgical History H/O prostate biopsy Family History Father Substance use disorder Mother Substance use disorder Maternal Grandfather Substance use disorder Maternal Grandmother Substance use disorder Paternal Grandfather Substance use disorder Paternal Grandmother Substance use disorder Social History Housing: House Patient Tobacco Use Status: Former Tobacco user e-Cigarette/Vaping Use: Never Used Second Hand Smoke Exposure: No service: No Current occupational status: employed Current occupation: [employer] Current occupational exposures/hazards: Yes Cognitive needs: No Hearing needs: No Vision needs: No Questionnaire PHQ-9 Over the last 2 weeks, how often have you been bothered by any of the following problems? 1. Little interest or pleasure in doing things: not at all 2. Feeling down, depressed, or hopeless: not at all 3. Trouble falling or staying asleep, or sleeping too much: not at all 4. Feeling tired or having little energy: not at all 5. Poor appetite or overeating: not at all 6. Feeling bad about yourself - or that you are a failure or have let yourself or your family down: not at all 7. Trouble concentrating on things, such as reading the newspaper or watching television: not at all 8. Moving or speaking so slowly that other people could have noticed. Or the opposite - being so fidgety or restless that you have been moving around a lot more than usual: not at all 9. Thoughts that you would be better off or of hurting yourself in some way: not at all Total score: 0 Depression Screening Interpretation: Negative Depression Screening Done: Yes 57546 - PHQ-9 Billing: Yes Source: Developed by Drs. Unruly Whaley, Breann Patino, Jessee Rod and colleagues, with an educational litzy from [employer]. Thrive Questionnaire Date Thrive assessed: 11/23/24 I am a: Patient What is your living situation today?: I have a steady place to live Within the past 12 months, did the food you bought not last and you didn't have the money to get more?: Never true Within the past 12 months, did you worry whether your food would run out before you got money to buy more?: Never true Do you have trouble paying for medicines?: No Do you have trouble getting transportation to medical appointments?: No Do you have trouble paying your heating and electricity bill?: No Do you have trouble taking care of your child, family member or friend?: No Do you have trouble with day-to-day activities such as bathing, preparing meals, shopping, managing finances, etc.?: No Are you currently unemployed and looking for a job?: No Are you interested in more education?: No Please select the resources that you would like help with: None Currently or been in a relationship where the following occur: No concerns reported THRIVE Score: 0 AUDIT C Alcohol Use Questionnaire (AUDIT-C) 1. How often do you have a drink containing alcohol?: 4 or more times a week 2. How many drinks containing alcohol do you have on a typical day when you are drinking?: 1 or 2 3. How often do you have six or more drinks on one occasion?: Less than monthly Total Score: 5 Score Reviewed/Action Taken: Yes STEFANY-7 AMB Questionnaire STEFANY-7 Date STEFANY - 7 assessed: 11/23/24 Feeling nervous, anxious, or on edge: 0 = Not at all Not being able to stop or control worryin = Not at all Worrying too much about different things: 0 = Not at all Trouble relaxin = Not at all Being so restless that it is hard to sit still: 0 = Not at all Becoming easily annoyed or irritable: 0 = Not at all Feeling afraid as if something awful might happen: 0 = Not at all Total STEFANY-7 score (0-4 normal; 5-9 mild; 10-14 moderate; 15-21 severe): 0 Source: Developed by Drs. Unruly Whaley, Breann Patino, Jessee Rod and colleagues, with an educational litzy from [employer]. STEFANY-7 Assessment Billing STEFANY-7 Assessment Tool: STEFANY-7 Assessment 95079 Physical exam (Primary Care) Vital Signs: Last Vital Signs Temp 97.8 F 11/23/24 10:40 Pulse 74 11/23/24 10:40 BP 138/72 11/23/24 10:40 Pulse Ox 96 11/23/24 10:40 BMI result Body Mass Index 33.6 Tobacco/Smoking Status: Tobacco use Status Tobacco use date assessed 11/23/24 11/23/24 10:42 Patient Tobacco Use Status Former Tobacco user 11/23/24 10:41 e-Cigarette/Vaping Use Never Used 11/23/24 10:41 PHQ-9: PHQ-9 Score PHQ-9: Total score 0 11/23/24 10:51 Depression Screening Interpretation: Negative Thrive Assessment: Date of Thrive Assessment Date Thrive assessed 11/23/24 11/23/24 10:42 Currently or been in a relationship where the following occur: No concerns reported Coding Level of Care Code Est Pt Prev Care >65y(66204) Diagnoses Physical exam Z00.00 Diabetes E11.9 Cough R05.9 COPD (chronic obstructive pulmonary disease) J44.9 SOB (shortness of breath) R06.02 Additional Codes STEFANY-7 Assessment Billing - STEFANY-7 Assessment Tool: STEFANY-7 Assessment 19177 ([id number]) PHQ-9 - 93734 - PHQ-9 Billing: Yes ([id number]) Assessment & Plan Assessment & Plan (1) Physical exam: Code(s): Z00.00 - Encounter for general adult medical examination without abnormal findings Category: Medical (2) Diabetes: Code(s): E11.9 - Type 2 diabetes mellitus without complications Category: Medical (3) Cough: Code(s): R05.9 - Cough, unspecified Category: Medical (4) COPD (chronic obstructive pulmonary disease): Code(s): J44.9 - Chronic obstructive pulmonary disease, unspecified Category: Medical (5) SOB (shortness of breath): Code(s): R06.02 - Shortness of breath Category: Medical Plan . Orders: Orders Complete Blood Count Auto Diff Today Z00.00 - Encounter for general adult medical examination without abnormal findings TSH reflex Free T4 Today Z00.00 - Encounter for general adult medical examination without abnormal findings D Dimer High Sensitivity Today R06.02 - Shortness of breath Comprehensive [place]. Panel Fast Today Z00.00 - Encounter for general adult medical examination without abnormal findings UA CC w/rflx Micro + Cult Today Z00.00 - Encounter for general adult medical examination without abnormal findings Lipid Panel Today Z00.00 - Encounter for general adult medical examination without abnormal findings Microalbumin, Random (w Creat) Today E11.9 - Type 2 diabetes [address] without complications CT chest wo IV con Today J44.9 - Chronic obstructive pulmonary disease, unspecified, R05.9 - Cough, unspecified Medications: New metformin ER 500 mg PO BID 90 days 180 tabs 0RF empagliflozin (Jardiance) 10 mg PO DAILY 90 tabs 0RF
[2024-11-23 10:40] VITALS: BP 138/72; PULSE 74; TEMP 36.6; O2SAT 96; BMI 33.6
== END 2024-11-23 11:18 | disposition home or self-care (01) ==
LOC: HO.HMCC 10:37
PROVIDERS: PCP Nurse Practitioner Family; Visit Provider Nurse Practitioner Family
DX: Z00.00 Encounter for general adult medical examination without abnormal findings (principal); E11.9 Type 2 diabetes mellitus without complications; R05.9 Cough, unspecified; J44.9 Chronic obstructive pulmonary disease, unspecified; R06.02 Shortness of breath; Z13.9 Encounter for screening, unspecified

== ENCOUNTER → 2024-11-23 10:36 | Outpatient (BNVA) | payer BC, SELFPAY | PROVIDERS: PCP Nurse Practitioner Family; Visit Provider Nurse Practitioner Family | DX: Z00.00 Encounter for general adult medical examination without abnormal findings (principal); E11.9 Type 2 diabetes mellitus without complications; R05.9 Cough, unspecified; J44.9 Chronic obstructive pulmonary disease, unspecified; R06.02 Shortness of breath | CPT/HCPCS: 83036; 96127 ==

== ENCOUNTER 2024-12-12 07:33 | Outpatient (AMB) | payer BC, SELFPAY ==
--- NOTE | 2024-12-12 07:12 | A.OFFPC_ITS ---
Intake Visit Reasons: back pain iPhone Allergies Sulfa (Sulfonamide Antibiotics) Allergy (Unknown, Verified 12/12/24 07:12) Nausea and Vomiting Medication List - Last Reconciled 12/12/24 by HELEN MendiolaP- albuterol sulfate 90 mcg/actuation 1 inh inhalation QID PRN allopurinol 100 mg PO DAILY apixaban (Eliquis) 5 mg PO BID atorvastatin 20 mg PO BEDTIME 90 days blood sugar diagnostic ([employer] Verio test strips) Test blood sugar twice a day blood-glucose meter ([employer] Verio Flex Meter) As directed empagliflozin (Jardiance) 10 mg PO DAILY lancets ([employer] Delica Plus Lancet) Test blood sugar twice a day lisinopril 10 mg PO DAILY 90 days metformin ER 500 mg PO BID 90 days metoprolol succinate ER 50 mg PO DAILY Tobacco use date assessed: 11/23/24 Dental Screening Dental Screen Date: 11/23/24 HPI back pain iPhone HPI Details History of Present Illness The patient is a 63-year-old male presenting with lower back pain potentially related to the medication Jardiance, which he began recently. The pain appears to have improved with discontinuation of the drug over a few days. He has chronic conditions including Type 2 Diabetes Mellitus and COPD. His COPD is managed with periodic monitoring, and he has shortness of breath on exertion, he is suspecting irritants like cold air or possible viral illnesses. He denies febrile symptoms and maintains clear speech without difficulty. His atrial fibrillation is under current management with an increased dose of metoprolol. The patient is scheduled for additional testing to assess his lung function (CT and PFT) Review of Systems - Respiratory: Reports shortness of ash th, particularly with exertion; Denies fever, chills. - Musculoskeletal: Reports lower back pa in. Plan The patient?s lower back pain possibly related to Jardiance will be monitored if he chooses to reduce the medication dose to 5 mg. Diabetes management will be furthered by an muff winder. Atrial fibrillation is actively managed, with metoprolol dosage adjusted to 50 mg. Additional tests, including PFT and a CT scan, are planned to evaluate his respiratory status due to COPD and shortness of breath. This structured approach aims to comprehensively address his symptoms and manage his chronic conditions effectively. Pt has A JUAN PABLO Discussion Notes I have discussed with the patient the likely association between Jardiance and his lower back pain and the possibility of reintroducing the medication at a lower dose. We have considered endocrinology follow-up for his diabetes to optimize his current management strategy. I also advised on continuing cardiology oversight for atrial fibrillation, given recent metoprolol dose adjustments. The upcoming PFT and CT scan were explained as tools to further investigate his COPD and the associated shortness of breath, especially on exertion. We did not discuss specific procedural risks or numerical success rates in detail, focusing on the importance of accurate testing. The patient consented to this plan and is scheduled for follow-ups as specified. Patient Instructions - Consider restarting Jardiance at 5 mg and monitor for any recurrence of lower back pain. - Follow up with endocrinology to review diabetes management. - Continue cardiology follow-up for atri al fibrillation management. - Attend scheduled pulmonary function te sts (PFT) and CT scan of the lungs. - Monitor for any signs of respiratory d istress or changes in shortness of breath. - Report any new or worsening symptoms p romptly. PFSH Surgical History (Reviewed 12/12/24 @ 07:19 by CH[facility]EN[facility] H/O prostate biopsy Family History Father Substance use disorder Mother Substance use disorder Maternal Grandfather Substance use disorder Maternal Grandmother Substance use disorder Paternal Grandfather Substance use disorder Paternal Grandmother Substance use disorder Social History (Reviewed 12/12/24 @ 07:19 by CHANTALE Mend[facility]olaEN[facility]) Housing: House Patient Tobacco Use Status: Former Tobacco user e-Cigarette/Vaping Use: Never Used Second Hand Smoke Exposure: No service: No Current occupational status: employed Current occupation: [employer] Current occupational exposures/hazards: Yes Cognitive needs: No Hearing needs: No Vision needs: No Questionnaire Thrive Questionnaire Date Thrive assessed: 11/23/24 STEFANY-7 AMB Questionnaire STEFANY-7 Date STEFANY - 7 assessed: 11/23/24 Source: Developed by Drs. Unruly Whaley, Breann Patino, Jessee Rod and colleagues, with an educational litzy from [employer]. Physical exam (Primary Care) Tobacco/Smoking Status: Tobacco use Status Tobacco use date assessed 11/23/24 12/12/24 07:15 Patient Tobacco Use Status Former Tobacco user 12/12/24 07:15 e-Cigarette/Vaping Use Never Used 12/12/24 07:15 Thrive Assessment: Date of Thrive Assessment Date Thrive assessed 11/23/24 12/12/24 07:15 Telehealth Telehealth Telehealth Platform: [employer] Location of provider rendering services: practice address Location of patient: address on file Patient Identification confirmed using: Name, : Yes Telehealth method: video Patient verbally consented to treatment: Yes Patient verbally consented to billing insurance company: Yes Patient informed of any privacy concerns related to visit: Yes Minutes spent on Phone/Video with Pt.: 10 Coding Level of Care Code Est Pt Level 3 (67862) Diagnoses COPD (chronic obstructive pulmonary disease) J44.9 SOB (shortness of breath) R06.02 Diabetes E11.9 Lower back pain M54.50 Assessment & Plan Assessment & Plan (1) COPD (chronic obstructive pulmonary disease): Code(s): J44.9 - Chronic obstructive pulmonary disease, unspecified Category: Medical (2) SOB (shortness of breath): Code(s): R06.02 - Shortness of breath Category: Medical (3) Diabetes: Code(s): E11.9 - Type 2 diabetes mellitus without complications Category: Medical (4) Lower back pain: Code(s): M54.50 - Low back pain, unspecified Category: Medical Plan . Orders: Orders PFT pulmonary function test Today J44.9 - Chronic obstructive pulmonary disease, unspecified, R06.02 - Shortness of breath
--- OUTSIDE RECORDS SUMMARY | 2024-12-12 07:35 | XMS_ITS | Continuity of Care Document ---
Author Organization [facility] Address [address] [place] [id number] [facility] Name Relationship Address Phone PRACHI SAWYER Personal Relationship Unknown Un available PRACHI SAWYER Personal Relationship Unknown Un available CIRO SAWYERN Personal Relationship Unknown Un available CIRO SAWYERN Personal Relationship Unknown Un available DIGNACIRON spouse Unknown Unavailable DIGNADAPHNE Personal Relationship Unknown Unavailable Care Team Providers Care Laborer [employer] Name Role Phone Darshan BROTHERS, Larry Powell Primary Care Physician Encounter [facility] [facility] R [id number] Date(s): 11/30/24 - 12/07/24 [facility] [address] [place] [address]- Attending Physician: Heber Vidal MD Encounter Type: Office Visit Allergies, Adverse Reactions, Alerts Substance Criticality Severity Reaction Reaction Severity Status sulfamethoxazole-tri methoprim 1 Unknown body region Active 1 Sulfa allergy, Reaction Unknown Medications Eliquis 5 mg oral tablet 1 tablet = 5 mg, By Mouth, 2 times a day, # 180 tablet, 5 Refills, Maintenance, 01/27/24 10:42:00 AMEDT, Tablet, [facility], Partial fill upon patient request if the prescription is fora schedule II opioid drug., 182, cm, 01/27/24 10:29:00 EDT, Height, 11.5, kg, 01/25/24 22:52:00 EDT, Dry Weight Start Date: 01/27/24 Status: Ordered Quantity: 180.0 Unit: tablet Repeat number: 6 Jardiance By Mouth, Daily in AM, 0 Refills, Maintenance, 11/30/24 3:40:00 PM EDT, Partial fill upon patient request if the prescription is for a schedule II opioid drug. Start Date: 11/30/24 Status: Ordered Repeat number: 1 MetFORMIN (Eqv-Glucophage XR) 500 mg oral tablet, extended release 1 tablet = 500 mg, By Mouth, Daily, 0 Refills, Maintenance, 01/25/24 9:44:00 PM EDT, Partial fill upon patient request if the prescription is for a schedule II opioid drug. Start Date: 01/25/24 Status: Ordered Repeat number: 1 metoprolol 50 mg oral tablet, extended release 50 mg, 1, tablet, By Mouth, Daily, # 90 tablet, Refills 3, Tot. Refills 3, Maintenance, 11/30/24 3:59:00 PM EDT, Route to Pharmacy Electronically, [id number], Partial fill upon patient request if the prescription is for a schedule II opioid drug., 183, cm, 11/30/24 15:42:00 EDT, Height, 111.3, kg, 02/15/24 14:22:00 EDT, Dry Weight Start Date: 11/30/24 Stop Date: 11/25/25 Status: Ordered Quantity: 90.0 Unit: tablet Repeat number: 4 Problem List Condition Confirmation Course Effective Dates Status H ealth Status Informant Alcohol use Confirmed Active Primary hypertension Confirmed Active Gout Confirmed Active Hyperlipidemia Confirmed Active Impaired fasting glycaemia Confirmed Active Obese class I Confirmed Active Obesity Confirmed Active PAF (paroxysmal atrial fibrillation) Confirmed Active Elevated PSA 1 Confirmed Active Tinnitus Confirmed Active Type 2 diabetes mellitus without complication, without long-term current use of insulin Confirmed Active 1urology Vital Signs Most recent to oldest [Reference Range]: 1 2 Height 183 cm (11/30/24 3:42 PM) 183 cm (11/30/24 3:40 PM) Weight 110.9 kg (11/30/24 3:40 PM) Oxygen Saturation [94-100 %] 96 % (11/30/24 3:40 PM) Pulse Rate [55-90 bpm] 67 bpm (11/30/24 3:42 PM) 67 bpm (11/30/24 3:40 PM) Body Mass Index [18.5-24.99 kg/m2] 33.12 kg/m2 *>HHI* (11/30/24 3:40 PM) Blood Pressure [90-138/55-84 mm Hg] 153/ 72mm Hg *H* (11/30/24 3:42 PM) 138/71mm Hg (11/30/24 3:40 PM) Mode of Delivery (Oxygen) Room air (11/30/24 3:40 PM) Blood pressure sites Arm, right (11/30/24 3:42 PM) Arm, left (11/30/24 3:40 PM) Weight Obtained Via Bed scale (11/30/24 3:40 PM) Social History Social History Type Response Smoking Status Former smoker, quit more than 30 days ago entered on: 01/22/19 Sex Sex Representation Male (finding) Cardiology Outpatient Note * Marcy BERMUDEZ, Heber Dailey: PERFORM Event Display: Cardiology Note Office Authored Date: [id number] Patient: ??DAPHNE SAWYER ? Age:??63 Years?Sex:??Male?:??1960?? Indication for Consult 9M FUV History of Present Illness/Interval History HISTORY OF PRESENT ILLNESS ?? It was a pleasure seeing Daphne in follow-up.?? He is a 63-year-old man with a history of paroxysmalatrial fibrillation ?? He has a history of recurrent episodes of atrial fibrillation. These episodes typically last between 1 to 2 days, although some have been as brief as a few hours. He reports that these episodes oftendisrupt his sleep and can occur during his workday. ?? In January 2024, he presented to his primary care provider and was found to be in rapid atrial fibrillation with heart rate around 150 beats per minute.?? He was sent to the emergency department, admitted, and ultimately underwent JAYY cardioversion.? He utilizes [employer] to monitor his heart rhythm and reports that it has been functioning accurately. He is currently on a regimen of metoprolol 25 mg extended release once daily, and an additional dose of 25 mg metoprolol tartrate as needed if he begins to experience symptoms of atrial fibrillation.?? He is on Eliquis but only taking it once per day because he thinks he was told to take thisdose. ?? He has recently started taking Jardiance and metformin. He consumes alcohol daily, typically one drink, but occasionally up to two drinks. He prefers vodka as it contains less sugar. ? SOCIAL HISTORY ?? 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 He does not smoke. He drinks alcohol, typically one drink a day, sometimes two. ? ASSESSMENT AND PLAN ?? 63-year-old man with paroxysmal atrial fibrillation, essential hypertension, alcohol use, jkr-ukqolpj-ynjkunkri type 2 diabetes without complication presents for follow-up, although new to me.?? He has frequent paroxysms of atrial fibrillation.?? He has not been therapeutically anticoagulated, onlytaking 1 dose of Eliquis daily for somewhat unclear reasons. ?? We will increase his metoprolol from 25 mg to 50 mg extended release once daily.?? His blood pressure is high normal today and there is room in terms of pulse as well.?? Recommended that he take his Eliquis twice daily as it is written. ?? 1. Paroxysmal atrial fibrillation, essential hypertension: Stable. -See above ?? 2.?? Alcohol use -Discussed that any alcohol use can make him more susceptible to atrial fibrillation.?? He is working on cutting back. ?? 3.?? Hyperlipidemia ??? I do not see any lipids from more recently than 2021.?? Recommend rechecking lipids and calculating 10-year atherosclerotic cardiovascular risk. ?? 6-month cardiology follow-up with WINSOME ?? Note created with the assistance of [employer] virtual scribe software. ?? Heber Vidal MD [facility] [phone] ?? [address] [place] [address] Review of Systems 10+ system ROS performed, pertinent positives and negatives in HPI and below. ??See scanned patientquestionnaire. Physical Exam Vitals & Measurements HR:??67??(Peripheral)?? BP:??153/72?? SpO2:??96%?? HT:??183??cm?? WT:??110.9??kg?? BMI:??33.12?? Weight lb/oz: 244 lb 8 oz Gen: pleasant, in no distress on room air, BMI elevated class I range Resp: lungs clear to auscultation bilaterally CV: normal rate, regular rhythm, no murmurs rubs or gallops. Ext: ??No JVD. ??No lower extremity edema. No carotid bruits.?? Allergies sulfamethoxazole-trimethoprim??(Unknown body region) Home Medications Eliquis 5 mg oral tablet, 5 mg= 1 tablet, By Mouth, 2 times a day, 5 refills Jardiance, By Mouth, Daily in AM MetFORMIN (Eqv-Glucophage XR) 500 mg oral tablet, extended release, 500 mg= 1 tablet, By Mouth, Daily metoprolol 50 mg oral tablet, extended release, 50 mg= 1 tablet, By Mouth, Daily, 3 refills Lab Results Cardiology Labs Blood Count & Diff?? General Chemistry?? Cardiac?? WBC: 7.7 k/mm3 (02/15/24) Sodium: 141 mmol/L (02/15/24) Bilirubin, Total: 0.5 mg/dL (01/26/24) RBC: 5.2 m/mm3 (02/15/24) Potassium: 4.8 mmol/L (02/15/24) ?? Hgb: 15.4 Gm/dL (02/15/24) Chloride:??109 mmol/L??High (02/15/24) ?? Hct: 45.5 % (02/15/24) Bicarbonate Level:??17 mmol/L??Low (02/15/24) ?? MCV: 87.5 femtoliters (02/15/24) Anion Gap: 15 (02/15/24) ?? Platelet Count: 233 k/mm3 (02/15/24) Glucose Level:??148 mg/dL??High (02/15/24) ? BUN: 23 mg/dL (02/15/24) ? Creatinine-Blood: 0.99 mg/dL (02/15/24) ? Estimated GFR Creatinine: 85 ML/MIN/1.73 M2 (02/15/24) ? Calcium: 9.3 mg/dL (02/15/24) ? Magnesium:??2.4 mg/dL??High (01/26/24) ? Protein, Total: 6.5 Gm/dL (01/26/24) ? Albumin: 4.2 Gm/dL (01/26/24) ? Alkaline Phosphatase: 87 units/L (01/26/24) ? AST (SGOT): 23 units/L (01/26/24) ? ALT (SGPT): 17 units/L (01/26/24) ?? Diagnostic Impression ECG ECG 12-Lead ?? 09:42:56 Please click on pdf link to open report ?? Signed By: Jg Schwartz MD ?? ECG 12-Lead ?? 09:42:56 Ventricular Rate: 54 BPM Atrial Rate: 54 BPM P-R Interval: 190 ms QRS Duration: 76 ms Q-T Interval: 434 ms QTC Calculation(Bazett): 411 ms P Lorena: 21 degrees R Lorena: -18 degrees T Lorena: 37 degrees Sinus bradycardia Otherwise normal ECG When compared with ECG of 15-FEB-2024 09:24, No significant change was found Confirmed ?? Signed By: Jg Schwartz MD Stress Test No qualifying data available. Echo Echocardiogram - Complete ?? 09:09:06 Summary The left ventricular size is normal. The left ventricular wall thickness is mildly increased. The LV systolic function is normal. The left ventricular ejection fraction is 55-60 %. There are no regional wall motion abnormalities. Normal diastolic function. ?? There is mild posterior mitral annular calcification. The mitral valve appears mildly thickened. There is mild mitral regurgitation. ?? The right ventricle is normal in size and function. ?? Comparison No prior study available for comparison. ?? Signature ?? Signed By: Nelson BERMUDEZ, Casper Garcia JAYY Trans-esophageal Echocardiogram ?? 01/26/24 13:56:10 Summary The left ventricular size is normal. The LV systolic function is mildly reduced . The left ventricular ejection fraction is 40-45 %. There is mild global hypokinesis with regional variation. The right ventricle is mildly dilated. Right ventricular systolic function is normal. The ascending aorta and aortic root are normal in size. There is mild plaque in the descending aorta with a moderate sized focal plaque in the proximal descending aorta. ?? Signature ?? Signed By: Hu Kwon DO Problem List/Past Medical History Ongoing Alcohol use Elevated PSA Gout Hyperlipidemia Impaired fasting glycaemia Obese class I Obesity PAF (paroxysmal atrial fibrillation) Primary hypertension Tinnitus Type 2 diabetes mellitus without complication, without long-term current use of insulin Procedure/Surgical History Colonoscopy: 06/06/13 History of Umbilical Hernia Repair Social History Alcohol Use: social. Electronic Cigarette/Vaping Electronic Cigarette Use: Never. Employment/School Status: Employed. Exercise Self assessment: Fair condition. Regular exercise: No. Home/Environment Living situation: Home/Independent. Lives with: Spouse. Nutrition/Health Diet: Regular. Caffeine intake amount: Coffee. Feels highly stressed: No. Substance Abuse Use: Never. Tobacco Use: Former smoker, quit more than 30 days ago. Family History Mother: COPD Father: Stroke Note * Beatrice Calvert: PERFORM Event Display: Patient Education/Instruction Authored Date: [id number] Ambulatory Adult Visit Summary [facility] [address] [place] [address] Name: DAPHEN SAWYER : 1960?? Visit: 11/30/2024 15:35?? Ambulatory Visit Instructions ?? Your Care Team Primary Care Provider Larry Sexton NP?? This Visit Provider Marcy BERMUDEZ, Heber Vitals Signs Pulse Rate: 67 bpm Height: 183 cm Systolic Blood Pressure:??153 mm Hg??High Weight: 110.9 kg Diastolic Blood Pressure: 72 mm Hg Body Mass Index:??33.12 kg/m2??Critical Oxygen Saturation: 96 % Body surface area: 2.37 What to do next Follow-Up Appointments Follow up Appointment - Ordered?-- 6 months WINSOME, WINSOME, 11/30/24 16:03:00 EDT Medications The list below reflects the information in our records and provided by you today along with any changes made during this visit. Please continue your medications until treatment is completed or stopped by your provider. If this is different from the information you have or there are other questions,please contact the prescribing provider. What How Much When Instructions Changed Metoprolol (metoprolol 50 mg oral tablet, extended release) 1 tab(s) Oral Daily Duration: 90 Days Pickup at [id number] Unchanged apixaban (Eliquis 5 mg oral tablet) 1 tab(s) Oral Twice a day Unchanged empagliflozin (Jardiance) Oral Daily in the morning Contact prescribing physician if questions or concerns ?? Unchanged Metformin (MetFORMIN (Eqv-Glucophage XR) 500 mg oral tablet, extended release) 1 tab(s) Oral Daily Contact prescribing physician if questions or concerns ?? Pharmacy Information [id number]: [address] [place] [id number] [phone] ?? What How Much When Comments Stop Taking Allopurinol (allopurinol 100 mg oral tablet) 1 tab(s) Oral Daily Stop Taking Lisinopril (lisinopril 10 mg oral tablet) 1 tab(s) Oral Daily Medications and Immunizations Administered Medications Given During Visit No medications given during this visit.?? Allergies (NKA means No Known Allergies) sulfamethoxazole-trimethoprim??(Unknown body region) Common Emergency Awareness Tips IS IT A STROKE? Act FAST and Check for these signs: FACE Does the face look uneven? ARM Does one arm drift down? SPEECH Does their speech sound strange? TIME Call at any sign of stroke ?? Heart Attack Signs Chest discomfort: Most heart attacks involve discomfort in the center of the chest and lasts more than a few minutes, or goes away and comes back. It can feel like uncomfortable pressure, squeezing, fullness or pain. Discomfort in upper body: Symptoms can include pain or discomfort in one or both arms, back, neck, jaw or stomach. Shortness of breath: With or without discomfort. Other signs: Breaking out in a cold sweat, nausea, or lightheaded. Remember, MINUTES DO MATTER. If you experience any of these heart attack warning signs, call to get immediate medical attention! ?? Smoking can increase your chances of developing chronic health problems and can cause harmful effects to other family members in your house. If you smoke, you are strongly encouraged to quit. Please call [employer] at [phone] or [phone] ([phone]) or log in to [email or web address] for referrals to smoking cessation programs. ?? The National Suicide Prevention Hotline is available 29/03 if you or someone you know needs to find a reason to keep living. By calling 8-601-510-[employer] (0968) you'll be connected to a skilled, trained counselor at a crisis center in your area. [facility] [employer] Portal You can view and manage your care through the patient portal or by using a health care winsome of your choosing. [employer] is a website that allows you to securely view your medical information including your hospital discharge summary, office visit summaries, medications and follow-up visits. You can also request appointments, renew medications, and request access to your medical information using a health care winsome of your choosing, or just ask a question. You can enroll at [email or web address] or register during your next office visit. [facility], in keeping with [facility] guidance, no longer requires face masks for staff, patientsor visitors in most situations. Similiar to time spent indoors at other locations, there is the chance that you were exposed to repiratory viruses during your time with us (such as flu or COVID-19). If you develop symptoms concerning for a viral respiratory infection, please seek testing (and treatment if indicated) from your medical provider or home test kit. ?? Disclaimer: The information provided is of a general nature and is intended to be used in conjunction with the recommendations and advice of your health care practitioner. Every effort has been made to ensure that the information provided is accurate and complete at the time it is provided to you however, as your needs change, or, as new information becomes available, different or additional instructions may be required. ?? If you have questions, please consult with your primary care provider or pharmacist, as appropriate. This information is not intended to serve as substitution for assessment and evaluation by a qualified health care provider. If you do not have a primary care provider, you may find a [facility] provider by calling [facility] [employer] Link at [phone]. Patient Care team information Care Team Personnel Name: Piedad Vides RN Position: S RN Member Role: Primary Care Nurse Name: Audrey Molina RN Position: JAYMIES RN Member Role: Primary Care Nurse Name: Larry Sexton NP Position: Reference Physician Member Role: PCP Address: [address] [place] [id number] Telecom: Care Team Related Persons Name: PRACHI SAWYER Insurance Providers Guarantor name: DAPHNE SAWYER Health Plan Information #: 1 Payer: [employer] Member Number: [id number] Policy Number: NA Group Number: [id number] Health Plan Information #: 2 Payer: [employer] Member Number: [id number] Policy Number: NA Group Number: [id number]
== END 2024-12-12 07:33 | disposition home or self-care (01) ==
LOC: HO.HMCC 07:33
PROVIDERS: PCP Nurse Practitioner Family; Visit Provider Nurse Practitioner Family
DX: J44.9 Chronic obstructive pulmonary disease, unspecified (principal); R06.02 Shortness of breath; E11.9 Type 2 diabetes mellitus without complications; M54.50 Low back pain, unspecified

== ENCOUNTER → 2024-12-12 07:33 | Outpatient (BNVA) | payer BC, SELFPAY | PROVIDERS: PCP Nurse Practitioner Family; Visit Provider Nurse Practitioner Family | DX: R06.02 Shortness of breath (principal); J44.9 Chronic obstructive pulmonary disease, unspecified; E11.9 Type 2 diabetes mellitus without complications; M54.50 Low back pain, unspecified ==

== ENCOUNTER 2024-12-30 09:46 | Outpatient (REF) | payer BC, SELFPAY ==
--- NOTE | ~2024-12-30 | XR_ITS ---
EXAMINATION: XR CHEST CLINICAL INFORMATION: J44.9 - Chronic obstructive pulmonary disease, unspecified COMPARISON: February 13, 2023 TECHNIQUE: 2 views of the chest were obtained. FINDINGS: Pulmonary reticular pattern, bilaterally and involving the lower lung lobes. No consolidation, pleural effusion or pneumothorax. Cardiomediastinal silhouette size is normal. Multilevel thoracic spondylosis. XR/XR chest 2V IMPRESSION: Chronic interstitial lung disease with the questionable superimposed acute small airway inflammatory process in the correct clinical settings. Electronically signed by: Casey Peres MD 01/03/2025 07:17 AM EDT
== END 2024-12-30 09:47 | disposition home or self-care (01) ==
LOC: HO.HMGCX 09:46
PROVIDERS: PCP Nurse Practitioner Family; Visit Provider Nurse Practitioner Family
DX: J44.9 Chronic obstructive pulmonary disease, unspecified (principal); R06.02 Shortness of breath
CPT/HCPCS: 71046

== ENCOUNTER → 2024-12-30 09:50 | Outpatient (BNV) | payer BC, SELFPAY | PROVIDERS: PCP Nurse Practitioner Family; Visit Provider Radiology Diagnostic Radiology | DX: J84.9 Interstitial pulmonary disease, unspecified (principal) | CPT/HCPCS: 71046 ==

== ENCOUNTER 2025-09-05 13:08 | Outpatient (AMB) | payer MEDICARE, SELFPAY ==
--- NOTE | 2025-09-05 13:16 | A.OFFPC_ITS ---
Vital Signs 09/05/25 13:17 Height 6 ft Weight 253 lb BMI 34.3 BP 128/64 Blood Pressure Location Rt brachial Position Sitting Respiration 16 Pulse 55 Pulse Source Pulse Oximeter Pulse Oximetry (%) 95 Oxygen Delivery Method Room Air Intake Visit Reasons: 4m f/u-inactive ins. check with OA RE Property Insurance Agent Required: No Accompanied by: Self / Same As Patient Allergies Sulfa (Sulfonamide Antibiotics) Allergy (Unknown, Verified 09/05/25 13:20) Nausea and Vomiting Medication List - Last Reconciled 09/05/25 by Larry Sexton, [facility] albuterol sulfate 90 mcg/actuation 1 inh inhalation QID PRN apixaban (Eliquis) 5 mg PO BID 30 days blood sugar diagnostic (VOICEPLATE.COMTouch Verio test strips) Test blood sugar twice a day blood-glucose meter (Biomat[employer] Verio Flex Meter) As directed glipizide ER 5 mg PO DAILY lancets (VOICEPLATE.COMTouch Delica Plus Lancet) Test blood sugar twice a day lisinopril 10 mg PO DAILY 90 days metformin ER 500 mg PO BID metoprolol succinate ER 50 mg PO DAILY Tobacco use date assessed: 11/23/24 Fall risk assessment: 1 Fall in past year Last assessed Fall Risk: 09/05/25 Dental Screening Dental Screen Date: 09/05/25 Did you have a dental visit in the last 12 months?: Yes Did you have a dental problem in the last 6 months where you did not have access to dental care?: No Was dental information given to patient?: Patient has dentist HPI 4m f/u-inactive ins. check with OA RE HPI Details Chief Complaint The patient presents for a follow-up visit. History of Present Illness The patient is a 64 year old male presenting for a follow-up visit. He has a history of atrial fibrillation and sees cardiology on a regular basis, with his last visit about a week ago. He is not currently taking Eliquis but was encouraged to restart it by his cardiology team and reports he hopes to afford it by tomorrow (new calendar year). The patient is a diabetic, and his most recent A1c was 7.6, an improvement from a previous result of over 10. He denies any neuropathy and is aware of the signs and symptoms of hypoglycemia and how to correct it. He is due for an eye exam, as his eye doctor has retired. His hypertension is currently stable. He reports quitting drinking alcohol completely a few weeks ago. He has declined all vaccinations. Social History - Substance Use: The patient reports he quit drinking alcohol completely a few weeks ago. - Financial: He reports being unable to afford Eliquis but hopes to be able to starting tomorrow. Health Maintenance The patient declined all vaccinations. Lab orders were entered for a PSA. Review of Systems - Constitutional: Reports feeling well. - Cardiovascular: Denies chest pain. - Respiratory: Denies shortness of breat h. - Neurological: Denies any neuropathy. - Endocrine: Reports knowledge of hypogl ycemia symptoms and how to correct them. Physical Exam General: Cooperative, healthy appearing, comfortable, no acute distress and well developed Orientation: Patient oriented x3 Limitations: No limitations Head: Normal to inspection Ears: Hearing grossly normal bilaterally Nose: Normal external nose present Face and sinus: Normal facial exam Eyes: Appearance normal, both eyes and all related structures Neck: Normal visual inspection and Yes full ROM Respiratory: Normal respiratory effort and able to speak in complete sentences. Clear to auscultation bilaterally Cardiovascular: Regular rate and rhythm. Normal S1 and S2 GI: Normal to inspection. Soft to palpation and nontender Skin: No rashes or lesions noted Neuro: Patient oriented x3 Extremities: Normal to inspection Results - Hemoglobin A1c: 7.6. - Previous Hemoglobin A1c: Above 10. Plan 1. Diabetes Mellitus The patient's A1c has improved to 7.6 from a previous level above 10. He understands the signs of hypoglycemia and how to manage it. Glipizide will be added to his regimen. A referral will be placed for an eye exam, as he is due and his previous doctor retired. Lab orders were entered for a microalbumin. 2. Atrial Fibrillation The patient has a history of AFib and is followed by cardiology, whom he saw last week. He is not currently on Eliquis but was encouraged to restart by his cardiology team. He was also encouraged to restart the medication during this visit and reports he should be able to afford it starting tomorrow. Cardiology notes will be awaited. 3. Hypertension The patient's blood pressure is stable. His cholesterol will be checked with labs. No longer on a statin Discussion Notes I encouraged the patient to restart his Eliquis, reinforcing the recommendation from his cardiology team. He reported he plans to do so tomorrow when he can afford it. I discussed adding glipizide for his diabetes and confirmed he unde rstands the signs of hypoglycemia and how to manage them. A referral for an eye exam was placed since his provider retired. We also ordered labs??a PSA and microalbumin. Patient Instructions - Please restart your Eliquis medication tomorrow, as we discussed, to help prevent strokes. - Begin taking the new medication, glipi zide, for your diabetes. - Watch for signs of low blood sugar, jaramillo ch as dizziness or shakiness, and know how to treat it. - We have placed a referral for an eye e xam. Please schedule this appointment. - Please go to the lab to have blood peng ts done, including a PSA, microalbumin, and cholesterol check. - Continue to avoid drinking alcohol. [facility] Surgical History H/O prostate biopsy Family History Father Substance use disorder Mother Substance use disorder Maternal Grandfather Substance use disorder Maternal Grandmother Substance use disorder Paternal Grandfather Substance use disorder Paternal Grandmother Substance use disorder Social History Housing: House Patient Tobacco Use Status: Former Tobacco user e-Cigarette/Vaping Use: Never Used Second Hand Smoke Exposure: No service: No Current occupational status: employed Current occupation: [employer] Current occupational exposures/hazards: Yes Cognitive needs: No Hearing needs: No Vision needs: No Questionnaire Thrive Questionnaire Date Thrive assessed: 11/23/24 I am a: Patient What is your living situation today?: I have a steady place to live Within the past 12 months, did the food you bought not last and you didn't have the money to get more?: Never true Within the past 12 months, did you worry whether your food would run out before you got money to buy more?: Never true Do you have trouble paying for medicines?: No Do you have trouble getting transportation to medical appointments?: No Do you have trouble paying your heating and electricity bill?: No Do you have trouble taking care of your child, family member or friend?: No Do you have trouble with day-to-day activities such as bathing, preparing meals, shopping, managing finances, etc.?: No Are you currently unemployed and looking for a job?: No Are you interested in more education?: No Currently or been in a relationship where the following occur: No concerns reported THRIVE Score: 0 STEFANY-7 AMB Questionnaire STEFANY-7 Date STEFANY - 7 assessed: 11/23/24 Source: Developed by Drs. Unruly Whaley, Breann Patino, Jessee Rod and colleagues, with an educational litzy from [employer]. Physical exam (Primary Care) Vital Signs: Last Vital Signs Pulse 55 09/05/25 13:17 Resp 16 09/05/25 13:17 BP 128/64 09/05/25 13:17 Pulse Ox 95 09/05/25 13:17 Oxygen Delivery Method Room Air 09/05/25 13:17 BMI result Body Mass Index 34.3 Tobacco/Smoking Status: Tobacco use Status Tobacco use date assessed 11/23/24 09/05/25 13:18 Patient Tobacco Use Status Former Tobacco user 09/05/25 13:18 e-Cigarette/Vaping Use Never Used 09/05/25 13:18 Thrive Assessment: Date of Thrive Assessment Date Thrive assessed 11/23/24 09/05/25 13:18 Currently or been in a relationship where the following occur: No concerns reported Results AMB Hemoglobin A1c AMB Hemoglobin A1c 7.6 % Last Edit by Rhiannon Winchester MA on 09/05/25 13:34 Coding Level of Care Code Est Pt Level 4 (72499) Diagnoses Diabetes E11.9 Dyslipidemia E78.5 HTN (hypertension) I10 Screening PSA (prostate specific antigen) Z12.5 Assessment & Plan Assessment & Plan (1) Diabetes: Code(s): E11.9 - Type 2 diabetes mellitus without complications Category: Medical (2) Dyslipidemia: Code(s): E78.5 - Hyperlipidemia, unspecified Category: Medical (3) HTN (hypertension): Code(s): I10 - Essential (primary) hypertension Category: Medical (4) Screening PSA (prostate specific antigen): Code(s): Z12.5 - Encounter for screening for malignant neoplasm of prostate Category: Medical Plan . Orders: Orders Lipid Panel Today E11.9 - Type 2 diabetes mellitus without complications AMB Hemoglobin A1c Today E11.9 - Type 2 diabetes mellitus without complications Complete Blood Count Auto Diff Today E11.9 - Type 2 diabetes mellitus without complications Comprehensive [place]. Panel Fast Today E11.9 - Type 2 diabetes mellitus without c omplications TSH reflex Free T4 Today E11.9 - Type 2 diabetes mellitus without complications UA CC w/rflx Micro + Cult Today E11.9 - Type 2 diabetes mellitus without complications Microalbumin, Random (w Creat) Today E11.9 - Type 2 diabetes mellitus without complications Prostate Specific Antigen Scr Today Z12.5 - Encounter for screening for malignant neoplasm of prostate Referrals Ophthalmology Referral E11.9 - Type 2 diabetes mellitus without complications Medications: New glipizide ER 5 mg PO DAILY 90 tabs 0RF Refilled blood sugar diagnostic (OneTouch Verio test strips) Test blood sugar twice a day 200 ea 1RF E11.9 - Type 2 diabetes mellitus without complications lancets (OneTouch Delica Plus Lancet) Test blood sugar twice a day 200 ea 1RF E11.9 - Type 2 diabetes mellitus without complications lancets (OneTouch Delica Plus Lancet) Test blood sugar twice a day 200 ea 1RF E11.9 - Type 2 diabetes mellitus without complications blood sugar diagnostic (OneTouch Verio test strips) Test blood sugar twice a day 200 ea 1RF E11.9 - Type 2 diabetes mellitus without complications
[2025-09-05 13:17] VITALS: BP 128/64; PULSE 55; RESP 16; O2SAT 95; BMI 34.3
== END 2025-09-05 13:49 | disposition home or self-care (01) ==
PROVIDERS: PCP Nurse Practitioner Family; Visit Provider Nurse Practitioner Family
DX: E11.9 Type 2 diabetes mellitus without complications (principal); E78.5 Hyperlipidemia, unspecified; I10 Essential (primary) hypertension; Z12.5 Encounter for screening for malignant neoplasm of prostate

== ENCOUNTER 2025-09-05 13:08 | Outpatient (REF) | payer MEDICARE, SELFPAY ==
[2025-09-05 16:14] LABS: MANUAL DIFF FLAG NO
[2025-09-05 16:44] LABS: Hematocrit 49.1 % (42.0-52.0); Hemoglobin 16.7 g/dl (14.0-18.0); Imm Gran Abs Auto 0.03 X10*3/uL (0.00-0.03); Imm Gran Pct Auto 0.5 % (0.0-0.4); Lymphocytes Absolute Auto 1.8 X10*3/uL (1.2-4.9); Mean Corpuscular HGB Conc 34.0 g/dl (31.0-36.0); Mean Corpuscular Hemoglobin 30.0 pg (27.0-33.0); Mean Corpuscular Volume 88.2 fL (80.0-98.0); NRBC Abs Auto 0.000 X10*3/uL (0.0-0.012); NRBC Pct Auto 0.0 /100WBC (0.0-0.2); Platelet Count 225 X10*3/uL (160-400); Red Blood Count 5.57 X10*6/uL (4.60-5.80); White Blood Count 5.9 X10*3/uL (4.8-10.8)
[2025-09-05 17:17] LABS: Appearance Urine Turbid; Glucose Urine UA Negative (Negative); PH 5.0 (5.0-9.0); Specific Gravity - Urine 1.020 (1.005-1.025)
[2025-09-05 17:35] LABS: Alanine Aminotransferase 31 U/L (0-40); Albumin Level 4.6 g/dL (3.5-5.0); Alkaline Phosphatase 87 U/L (39-117); Anion Gap 15 (12-20); Aspartate Amino Transferase 47 U/L (5-37); Blood Urea Nitrogen 19 mg/dL (9-16); Calcium 9.5 mg/dL (8.4-10.2); Carbon Dioxide 23 mmol/L (22-29); Chloride 104 mmol/L (96-108); Cholesterol 228 mg/dL (<200); Estimated Glomerular Filt Rate > 60; HDL Cholesterol 43 mg/dL (>40); Potassium 4.6 mmol/L (3.3-5.1); Sodium 137 mmol/L (135-145); Total Protein 7.4 g/dL (6.5-8.0); Triglycerides 257 mg/dL (<150)
[2025-09-05 17:36] LABS: Microalbum/Creatinine Ratio Ur 8.6 ug/mg cr (<30)
== END 2025-09-05 13:09 | disposition home or self-care (01) ==
LOC: HO.HMGCLDS 13:08
PROVIDERS: PCP Nurse Practitioner Family; Visit Provider Nurse Practitioner Family
DX: E11.9 Type 2 diabetes mellitus without complications (principal); I48.91 Unspecified atrial fibrillation; I10 Essential (primary) hypertension; E78.5 Hyperlipidemia, unspecified; Z12.5 Encounter for screening for malignant neoplasm of prostate
CPT/HCPCS: 36415; 80053; 80061; 81003; 82043; 82570; 83036; 84153; 84443; 85025; 99212